=== PATIENT | female | born 1970 | race African-American/Black ===

== ENCOUNTER 2016-09-25 06:30 | Emergency (ER) | payer SELFPAY ==
[2016-09-25 06:47] VITALS: BMI 26.4
--- NOTE | 2016-09-25 07:35 | PDOC ---
History of Present Illness - General History Source: Patient Exam Limitations: No Limitations - History of Present Illness Initial Comments: 09/25/16 07:35 The patient is a 45-year-old woman with no past medical history who presents to the emergency department via walk-in for further evaluation of chest pain. 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 Patient states that she went to help assist a patient, when she raised her arm and suddenly experienced mid-sternal chest pressure sensations that have been intermittent throughout the night and morning with an initial rated severity of 7/10 but currently an 8/10. She notes that when she takes a deep breath, attempts to swallow.cough cough or when she presses on her chest, her pressure pain exacerbates. Her pain is not exacerbated with musculoskeletal maneuvers. She did not take any over the counter pain medications for her symptoms. She denies any associated symptoms of shortness of breath, cough, lightheadedness, dizziness, palpitations, headaches, nausea, vomiting, diarrhea , sore throat, calf pain/ tenderness. No history of blood clots. No recent long trips. Allergies: No Known Drug Allergies Past Surgical History: None reported Social History: Student Nurse at [employer]. No tobacco, EtOH and recreational drug use. <Mela Pearson - Last Filed: 09/25/16 08:48> - General History Source: Patient, Old Records Exam Limitations: No Limitations <Gracy Chiang - Last Filed: 09/25/16 10:06> - General Chief Complaint: Chest Pain Stated Complaint: CHEST PAIN Time Seen by Provider: 09/25/16 07:28 Past History <Mela Pearson - Last Filed: 09/25/16 08:48> - Psycho/Social/Smoking Cessation Hx Suicidal Ideation: No Smoking History: Never smoked Have you smoked in the past 12 months: No Information on smoking cessation initiated: No Hx Alcohol Use: No Drug/Substance Use Hx: No <Gracy Chiang - Last Filed: 09/25/16 10:06> - Past Medical History Allergies/Adverse Reactions: Allergies Allergy/AdvReac Type Severity Reaction Status Date / Time No Known Allergies Allergy Verified 09/25/16 06:46 Home Medications: Ambulatory Orders NK [No Known Home Medication] 09/25/16 Review of Systems - Review of Systems Able to Perform ROS?: Yes Comments:: 09/25/16 07:35 CONSTITUTIONAL: Absent: fever, chills, diaphoresis, generalized weakness, malaise, loss of appetite HEENT: Absent: rhinorrhea, nasal congestion, throat pain, throat swelling, difficulty swallowing, mouth swelling, ear pain, eye pain, visual Changes CARDIOVASCULAR: Present: Chest Pain. Absent: syncope, palpitations, irregular heart rate, lightheadedness, peripheral edema RESPIRATORY: Absent: cough, shortness of breath, dyspnea with exertion, orthopnea, wheezing, stridor, hemoptysis GASTROINTESTINAL:Absent: abdominal pain, abdominal distension, nausea, vomiting , diarrhea, constipation, melena, hematochezia GENITOURINARY: Absent: dysuria, frequency, urgency, hesitancy, hematuria, flank pain, genital pain MUSCULOSKELETAL: Absent: myalgia, arthralgia, joint swelling SKIN: Absent: rash, itching, pallor HEMATOLOGIC/IMMUNOLOGIC: Absent: easy bleeding, easy bruising, lymphadenopathy, frequent infections ENDOCRINE:Absent: unexplained weight gain, unexplained weight loss, heat intolerance, cold intolerance NEUROLOGIC: Absent: headache, focal weakness or paresthesias, dizziness, unsteady gait, seizure, mental status changes, bladder or bowel incontinence PSYCHIATRIC: Absent: anxiety, depression, suicidal or homicidal ideation, hallucinations <Mela Pearson - Last Filed: 09/25/16 08:48> *Physical Exam - Vital Signs Last Vital Signs Temp Pulse Resp BP Pulse Ox 98.1 F 58 L 20 115/62 97 09/25/16 06:46 09/25/16 06:46 09/25/16 06:46 09/25/16 06:46 09/25/16 06:46 - Physical Exam Comments: 09/25/16 07:35 GENERAL: Well developed, well nourished. Awake and alert. No acute distress. HEENT: Normocephalic, atraumatic. PERRLA, EOMI. No conjunctival pallor. Sclera are non-icteric. Moist mucous membranes. Oropharynx is clear. NECK: Supple. Full ROM. No JVD. CARDIOVASCULAR: Regular rate and rhythm. No murmurs, rubs, or gallops. PULMONARY: No evidence of respiratory distress. Lungs clear to auscultation bilaterally. No wheezing, rales or rhonchi. ABDOMINAL: Soft. Non-tender. Non-distended. No rebound or guarding. No organomegaly. Normoactive bowel sounds. MUSCULOSKELETAL: Normal range of motion at all joints. No bony deformities or tenderness. No CVA tenderness. EXTREMITIES: No cyanosis. No clubbing. No edema. No calf tenderness. SKIN: Warm and dry. Normal capillary refill. No rashes. No jaundice. NEUROLOGICAL: Alert, awake, appropriate. Cranial nerves 2-12 intact. . Normal speech. PSYCHIATRIC: Cooperative. Good eye contact. Appropriate mood and affect. <Mela Pearson - Last Filed: 09/25/16 08:48> - Vital Signs Last Vital Signs Temp Pulse Resp BP Pulse Ox 98.1 F 58 L 20 115/62 97 09/25/16 06:46 09/25/16 06:46 09/25/16 06:46 09/25/16 06:46 09/25/16 06:46 <Gracy Chiang - Last Filed: 09/25/16 10:06> ED Treatment Course - LABORATORY CBC & Chemistry Diagram: 09/25/16 07:50 09/25/16 07:50 - ADDITIONAL ORDERS Additional order review: 09/25/16 07:50 RBC 4.55 MCV 68.3 L MCHC 31.5 L RDW 15.6 MPV 8.7 Neutrophils % 66.9 Lymphocytes % 23.2 Monocytes % 7.5 Eosinophils % 2.0 Basophils % 0.4 - RADIOLOGY Radiograph Interpretation: 09/25/16 08:42 EXAM: RAD/CHEST X-RAY PORTABLE Interpreted by Dr. Leonardo Riggins IMPRESSION: The trachea is normal in size is not deviated. The cardiomediastinal silhouette, thoracic aorta, and hilar regions are normal. The pulmonary vasculature pattern is normal. The lungs are well aerated, without evidence of active pulmonary disease, pleural effusion or pneumothorax. No bulky hilar adenopathy is noted. No lung mass is seen within the limitation of examination. The visualized osseous structure and soft tissues are normal. EKG leads are noted. <Mela Pearson - Last Filed: 09/25/16 08:48> - LABORATORY CBC & Chemistry Diagram: 09/25/16 07:50 09/25/16 07:50 <Gracy Chiang - Last Filed: 09/25/16 10:06> Medical Decision Making - Medical Decision Making 09/25/16 08:56 45-year-old female with no significant past medical history presents to the emergency Department with complaints of right sided chest pain radiating to the midsternal region since 1 AM; worse with deep inspiration and movement. Differential diagnosis includes but is not limited to,: ACS, pericarditis, myocarditis, GERD, musculoskeletal pain, electrolyte abnormality, toxic/ metabolic derangement. Given the patient's heart score it is unlikely that this is cardiac in our edition and she is a low risk chest pain patient. Plan: 1. EKGshows sinus bradycardia at 57 bpm with normal axis, normal intervals and no acute ST segment changes 2. Chest x-ray 3. Labs 4. Urine analysis and urine 5. Toradol and Pepcid 6. Observe and reevaluate 09/25/16 10:04 Addendum: The patient's labs were reviewed and are noted in the EMR. The cardiac enzymes and troponin are negative. The patient is feeling mildly improved. We'll discharge home, follow up with primary care physician and return to the emergency department if symptoms persist, worsen, or new symptoms arise. <Gracy Chiang - Last Filed: 09/25/16 10:06> *DC/Admit/Observation/Transfer - Attestations Scribe Attestion: 09/25/16 07:35 Documentation prepared by Mela Pearson, acting as medical office receptionist for Gracy Chiang MD. <Mela Pearson - Last Filed: 09/25/16 08:48> - Discharge Dispostion Admit: No - Attestations Physician Attestion: 09/25/16 08:59 I, Dr. Gracy Chiang, attest that the scribes documentation that appears above has been prepared under my direction and personally reviewed by me in its entirety. I confirmed that the note above accurately reflects all work, treatment, procedures, and medical decision-making performed by me. <Gracy Chiang - Last Filed: 09/25/16 10:06> Diagnosis at time of Disposition: Precordial pain - Discharge Dispostion Disposition: HOME Condition at time of disposition: Stable - Patient Instructions Printed Discharge Instructions: DI for Atypical Chest Pain Additional Instructions: Please follow-up with your primary care physician and return to the emergency department if symptoms persist, worsen, or new symptoms arise. - Post Discharge Activity Work/School Note: Back to Work
[2016-09-25] MEDS ORDERED: KETOROLAC TROMETHAMINE 30 MG/1 ML VIAL IVPUSH ONE (07:36)
[2016-09-25 08:33] LABS: BASOPHIL 0.4 % (0-2.0); MCH 21.5 pg (25.7-33.7); MCHC 31.5 g/dl (32.0-36.0); MEAN CELL VOLUME 68.3 fl (80-96); MEAN PLT VOLUME 8.7 fl (7.5-11.1); NEUTROPHILS 66.9 % (42.8-82.8); PLATELET COUNT 194 K/MM3 (134-434); RDW 15.6 % (11.6-15.6); WHITE BLOOD COUNT 6.9 K/mm3 (4.0-10.0)
[2016-09-25 08:46] LABS: URINE APPEARANCE CLEAR; URINE BILIRUBIN NEGATIVE (NEGATIVE); URINE COLOR LTYELLOW; URINE GLUCOSE (UA) NEGATIVE (NEGATIVE); URINE KETONE NEGATIVE (NEGATIVE); URINE LEUK ESTERASE NEGATIVE (NEGATIVE); URINE NITRITE NEGATIVE (NEGATIVE); URINE PROTEIN NEGATIVE (NEGATIVE); URINE UROBILINOGEN NEGATIVE E.U./dl (0.2-1.0)
[2016-09-25 08:49] LABS: URINE BLOOD 3+ (NEGATIVE)
[2016-09-25] MEDS ORDERED: KETOROLAC TROMETHAMINE 60 MG/2 ML VIAL ONE (08:53)
[2016-09-25 08:54] LABS: ALBUMIN 3.4 g/dl (3.4-5.0); ANION GAP 11 (8-16); BILIRUBIN,TOTAL 0.3 mg/dL (0.2-1.0); CALCIUM 8.6 mg/dL (8.5-10.1); CO2 28 mmol/L (21-32); CREATININE 0.7 mg/dL (0.55-1.02); GLUCOSE,RANDOM 79 mg/dL (74-106); PHOSPHOROUS 3.5 mg/dL (2.5-4.9); SGOT/AST 15 U/L (15-37); SGPT/ALT 24 U/L (12-78); TOT PROT 6.9 g/dl (6.4-8.2)
[2016-09-25 08:56] LABS: URINE BACTERIA RARE /hpf (NONE SEEN); URINE MUCUS RARE; URINE WBC 8 /hpf (3-5)
[2016-09-25 08:58] LABS: ALK PHOS 60 U/L (45-117); TROPONIN I 0.03 ng/ml (0.00-0.05)
[2016-09-25] MEDS ORDERED: KETOROLAC TROMETHAMINE 60 MG/2 ML VIAL IM ONE (09:01)
[2016-09-25 10:10] LABS: MAGNESIUM 2.3 mg/dL (1.8-2.4)
[2016-09-25 10:32] VITALS: BP 110/70; PULSE 80; TEMP 98
--- NOTE | 2016-09-25 10:42 | EKG ---
Test Reason : Blood Pressure : / mmHG Vent. Rate : 057 BPM Atrial Rate : 057 BPM P-R Int : 122 ms QRS Dur : 096 ms QT Int : 394 ms P-R-T Axes : 004 040 038 degrees QTc Int : 383 ms SINUS BRADYCARDIA RSR' OR QR PATTERN IN V1 SUGGESTS RIGHT VENTRICULAR CONDUCTION DELAY OTHERWISE NORMAL ECG NO PREVIOUS ECGS AVAILABLE CLINICAL CORRELATION IS RECOMMENDED Confirmed by PIPE ROSAS, ELIZABETH ([id number]) on 09/25/2016 10:42:10 AM Referred By: Confirmed By:ELIZABETH BETANCUR MD
[2016-09-25 12:30] LABS: FRAGMENTED CELL 1+; HYPOCHROMIA 1+; MICROCYTOSIS 1+; OVALOCYTES 2+; POLYCHROMASIA 1+; TARGET CELLS 2+; TEAR DROP CELLS 1+
== END 2016-09-25 10:33 | disposition home or self-care (01) ==
LOC: JER 06:30
PROC: 3E0233Z Introduction of Anti-inflammatory into Muscle, Percutaneous Approach (ICD-10-PCS; principal; 2016-09-25)
DX: R07.2 Precordial pain (principal); X50.0XXA Overexertion from strenuous movement or load, initial encounter; Y93.F9 Activity, other caregiving; Y92.230 Patient room in hospital as the place of occurrence of the external cause; Y99.0 Civilian activity done for income or pay
CPT/HCPCS: 36415; 71010-TC; 80053; 81003; 81015; 82550; 82553; 83690; 83735; 84100; 84484; 84703; 85025; 85379; 93005; 93010; 99282-25